=== PATIENT | male | born 1955 | race American Indian/Alaskan Native ===

== ENCOUNTER 2024-04-30 11:39 | Emergency (ER) | payer MEDICAID, OTHER ==
[2024-04-30] MEDS ORDERED: fentaNYL 100 MCG/2 ML SDV IV ONE (11:40)
[2024-04-30] MEDS ORDERED: Sodium Chloride 0.9% 1,000 ML IV ONE (11:40)
[2024-04-30] MEDS ORDERED: Lidocaine 5% 700 MG Patch TRDERM ONE (11:40)
[2024-04-30] MEDS ORDERED: Take Home: Cyclobenzaprine 10 MG Tab, 4 Tab Pack PO ONE ×2 (11:40→13:11)
[2024-04-30] MEDS ORDERED: fentaNYL 100 MCG/2 ML SDV IVPUSH ONE (11:54)
[2024-04-30] MEDS ORDERED: Naloxone 2 MG/2 ML Syringe IVPUSH PRN (11:54)
[2024-04-30 12:00] LABS: BASOPHILS PERCENT AUTO 0.3 % (0.0-1.0); EOSINOPHILS PERCENT AUTO 4.9 % (1.0-3.0); HEMATOCRIT 45.4 % (40.0-54.0); HEMOGLOBIN 14.9 g/dL (14.0-18.0); LYMPHOCYTES PERCENT AUTO 21.6 % (20.5-50.1); MEAN CORPUSCULAR HEMOGLOBIN 30.5 pg (27.0-34.0); MEAN CORPUSCULAR HGB CONC 32.8 g/dL (33.0-35.0); MONOCYTES PERCENT AUTO 7.3 % (2-8); NEUTROPHILS PERCENT AUTO 65.9 % (42.2-75.2); PLATELET COUNT,PLT 504 10^3/uL (150-450); RED BLOOD CELL COUNT 4.88 10^6/uL (4.6-6.2); WHITE BLOOD CELL COUNT,WBC 10.9 10^3/uL (5.0-10.0)
[2024-04-30] MEDS ORDERED: Sodium Chloride 0.9% 1,000 ML IV SCH (12:00)
[2024-04-30 12:29] LABS: A/G RATIO 1.1; ALBUMIN 3.9 g/dL (3.4-5.0); ANION GAP 17.5 mEq/L (7-13); BILIRUBIN TOTAL 0.4 mg/dL (0.2-1.0); BUN/CREATININE RATIO 21.3 (No establ ref range); CREATININE 1.27 mg/dL (0.70-1.30); EST CRCL DRUG DOSING (CG) 7.39 mL/min; POTASSIUM,K 4.5 mmol/L (3.5-5.1); PROTEIN TOTAL,TP 7.5 g/dL (6.4-8.2)
[2024-04-30 12:32] LABS: PROTHROMBIN TIME 9.9 SEC (9.0-12.0); PTT,PARTIAL THROMBOPLSTIN TIME 25.4 SEC (22.0-34.0)
[2024-04-30] MEDS ORDERED: Lidocaine 5% 700 MG Patch TOP ONE (13:11)
== END 2024-04-30 13:42 | disposition home or self-care (01) ==
LOC: DL.ED 11:39
DX: S46.912A Strain of unspecified muscle, fascia and tendon at shoulder and upper arm level, left arm, initial encounter (principal); S20.212A Contusion of left front wall of thorax, initial encounter; W10.8XXA Fall (on) (from) other stairs and steps, initial encounter; Y93.89 Activity, other specified
CPT/HCPCS: 36415; 70450; 71101; 72125; 73030; 80053; 80307; 85025; 85610; 85730; 99283; 99284; A9270; J3010; J7030